=== PATIENT | male | born 2000 | race Two or more races ===

== ENCOUNTER 2023-01-15 06:23 | Day surgery (SDC) | payer OTHER ==
[~2023-01-15] VITALS: Ht 177.8 cm; Wt 95.3 kg
[~2023-01-15 06:23] MED LIST: COUMADIN PO
[2023-01-15] MEDS ORDERED: DEXAMETHAS10 MG/1 M1 IM (10:28)
[2023-01-15] MEDS ORDERED: CILOXAN5 ML OTIC (10:29)
== END 2023-01-15 11:00 | disposition home or self-care (01) ==
LOC: EDBD → CIR.AMB 06:23
PROVIDERS: ATTEND Otolaryngology Otology & Neurotology
DX: H91.21 Sudden idiopathic hearing loss, right ear (principal); Z20.822 Contact with and (suspected) exposure to COVID-19